=== PATIENT | female | born 1965 | race Caucasian/White ===

== ENCOUNTER → 2024-10-14 06:25 | Outpatient (REF) | payer BC, SELFPAY | LOC: RAD 06:25 | PROVIDERS: ATTENDING PHYSICIAN Colon & Rectal Surgery | DX: R10.84 Generalized abdominal pain (principal) | CPT/HCPCS: 74177; Q9967 ==

== ENCOUNTER → 2024-12-08 18:17 | Outpatient (REF) | payer OTHER, BC, SELFPAY | LOC: MRI 18:17 | PROVIDERS: ATTENDING PHYSICIAN Otolaryngology; FAMILY PHYSICIAN Surgery | DX: H90.42 Sensorineural hearing loss, unilateral, left ear, with unrestricted hearing on the contralateral side (principal) | CPT/HCPCS: 70553; A9575 ==

== ENCOUNTER 2024-12-30 06:15 | Day surgery (SDC) | payer BC, SELFPAY | END 2024-12-30 08:47 | disposition home or self-care (01) | LOC: GI 06:15 | PROVIDERS: ATTENDING PHYSICIAN Specialist | DX: Z12.11 Encounter for screening for malignant neoplasm of colon (principal); Z80.0 Family history of malignant neoplasm of digestive organs | CPT/HCPCS: G0105 ==

== ENCOUNTER → 2025-02-24 14:17 | Outpatient (REF) | payer BC, SELFPAY | LOC: WDC 14:17 | PROVIDERS: ATTENDING PHYSICIAN Student in an Organized Health Care Education/Training Program; FAMILY PHYSICIAN Internal Medicine; REFERRING PHYSICIAN Internal Medicine Cardiovascular Disease | DX: Z78.0 Asymptomatic menopausal state (principal); Z12.31 Encounter for screening mammogram for malignant neoplasm of breast | CPT/HCPCS: 77063; 77067; 77080 ==